=== PATIENT | female | born 1950 | race Caucasian/White ===

== ENCOUNTER 2018-07-16 21:51 | Emergency (ER) | payer MEDICARE, OTHER ==
[2018-07-16] MEDS ORDERED: Acetaminophen/HYDROcodone 325-5 MG Tab PO ONE ×2 (21:52→23:50)
[2018-07-16] MEDS ORDERED: Ondansetron 4 MG/2 ML SDV IVPUSH ONE (22:10)
[2018-07-16] MEDS ORDERED: Ketorolac 30 MG/ML SDV IVPUSH ONE (22:10)
[2018-07-16] MEDS ORDERED: Sodium Chloride 0.9% 1,000 ML IV ONE (22:10)
--- NOTE | 2018-07-16 22:30 | EDM.PDOC ---
ED HPI GENERAL MEDICAL PROBLEM - General Chief Complaint: Abdominal Pain Stated Complaint: VOMITTING Time Seen by Provider: 07/16/18 21:52 Source of Information: Reports: Patient, Family History Limitations: Reports: No Limitations - History of Present Illness INITIAL COMMENTS - FREE TEXT/NARRATIVE: 68 years old w was seen in the clinic today and was diagnosed with a bladder infection. Pt took one dose of Bactrim and felled suddenly pain at her R flank, thinking she is allergic to that Abx. On arrival to the ed, pt had excruciating pain at her r flank going down to her right groin. No H/O kidney stones. Pt is extremely nauseated as well. No trauma. The UA taken this am showed hematuria only, rn surgery WBC no LE no Nitrated. Pt has is S/P Hysterectomy. [employer] C/P no Dizziness or diarrhea or any other acute medical issue. BP 177/106 RR 20 Pulse ox 97% on RA Temp 36.8 Pulse 103 Onset Date: 07/15/18 Onset Time: 07:00 Duration: Hour(s):, Getting Worse, Intermittent Location: Reports: Pelvis Quality: Reports: Ache, Burning, Dull, Pressure, Throbbing Severity: Severe Improves with: Reports: None Worsens with: Reports: None Context: Reports: Other R lower abdomen radiating into R lower back & hip Pain Score (Numeric/FACES): 10 - Related Data Allergies Allergy/AdvReac Type Severity Reaction Status Date / Time aspirin [From Percodan] Allergy Nausea Verified 07/16/18 22:02 oxycodone [From Percodan] Allergy Nausea Verified 07/16/18 22:02 Home Meds: Home Meds Tamsulosin HCl [Flomax] 0.4 mg PO DAILY #5 capsule 07/17/18 [Rx] ED ROS GENERAL - Review of Systems Review Of Systems: See Below Constitutional: Reports: No Symptoms HEENT: Reports: No Symptoms Respiratory: Reports: No Symptoms Cardiovascular: Reports: No Symptoms Endocrine: Reports: No Symptoms GI/Abdominal: Reports: Abdominal Pain : Reports: Flank Pain, Hematuria Musculoskeletal: Reports: No Symptoms Skin: Reports: No Symptoms Neurological: Reports: No Symptoms Psychiatric: Reports: No Symptoms Hematologic/Lymphatic: Reports: No Symptoms Immunologic: Reports: No Symptoms ED EXAM, GI/ABD - Physical Exam Exam: See Below Exam Limited By: No Limitations General Appearance: Alert, WD/WN, Moderate Distress Eyes: Bilateral: Normal Appearance Ears: Normal External Exam Nose: Normal Inspection, Normal Mucosa, No Blood Throat/Mouth: Normal Inspection, Normal Lips, Normal Voice, No Airway Compromise Head: Atraumatic, Normocephalic Neck: Normal Inspection, Supple, Non-Tender, Full Range of Motion Respiratory/Chest: No Respiratory Distress, Lungs Clear, Normal Breath Sounds, No Accessory Muscle Use, Chest Non-Tender Cardiovascular: Normal Peripheral Pulses, Regular Rate, Rhythm, No Edema, No Gallop, No JVD, No Murmur, No Rub GI/Abdominal Exam: Normal Bowel Sounds, Soft, Non-Tender, No Organomegaly, No Distention, No Abnormal Bruit, No Mass, Pelvis Stable (Female) Exam: Deferred Rectal (Female) Exam: Deferred Back Exam: Normal Inspection, Full Range of Motion, CVA Tenderness (R) Extremities: Normal Inspection, Normal Range of Motion, Non-Tender, No Pedal Edema, Normal Capillary Refill Neurological: Alert, Oriented, CN II-XII Intact, Normal Cognition, Normal Gait, No Motor/Sensory Deficits Psychiatric: Normal Affect, Normal Mood Skin Exam: Warm, Dry, Intact, Normal Color, No Rash Lymphatic: No Adenopathy Course - Vital Signs Text/Narrative:: 68 years old w was seen in the clinic today and was diagnosed with a bladder infection. Pt took one dose of Bactrim and felled suddenly pain at her R flank, thinking she is allergic to that Abx. On arrival to the ed, pt had excruciating pain at her r flank going down to her right groin. No H/O kidney stones. Pt is extremely nauseated as well. No trauma. The UA taken this am showed hematuria only, rn surgery WBC no LE no Nitrated. Pt has is S/P Hysterectomy. [employer] C/P no Dizziness or diarrhea or any other acute medical issue. BP 177/106 RR 20 Pulse ox 97% on RA Temp 36.8 Pulse 103 PE: WNWD w f with acute onset of right flank pain Imaging; Urolithiasis 6 mm right mid ureter with hydronephrosis and perinephritic stranding Labs: CBC n;l BMP: Cr 1.2 GFR 44 UA doen at [place]: Hematuria Impression: Kidney stone Tx: Tradol Dilaudid, Zofran, Reexam: Improved 11.[address] Hampton, Urologist , [facility]: F/U in clinc [place]: Pt was painfree on D/C Plan: D/C with instructions Last Recorded V/S: Last Vital Signs Temp 36.8 C 07/16/18 21:52 Pulse 83 07/17/18 00:04 Resp 18 07/17/18 00:04 BP 124/82 07/17/18 00:04 Pulse Ox 96 07/17/18 00:04 - Orders/Labs/Meds Orders: Active Orders 24 hr Category Date Time Status Abdomen wo Cont [CT] Stat Exams 07/16/18 23:24 Taken UA W/MICROSCOPIC [URIN] Routine Lab 07/16/18 22:07 Ordered Labs: Laboratory Tests 07/16/18 07/16/18 Range/Units 22:22 22:22 WBC 10.0 (4.5-12.0) X10-3/uL RBC 4.48 (3.23-5.20) x10(6)uL Hgb 14.5 (11.5-15.5) g/dL Hct 42.3 (30.0-51.3) % MCV 94.5 (80-96) fL MCH 32.5 (27.7-33.6) pg MCHC 34.4 (32.2-35.4) g/dL RDW 11.7 (11.5-15.5) % Plt Count 246 (125-369) X10(3)uL MPV 8.5 (7.4-10.4) fL Neut % (Auto) 63.2 (46-82) % Lymph % (Auto) 26.2 (13-37) % [place] % (Auto) 7.3 (4-12) % Eos % (Auto) 2 (1.0-5.0) % Baso % (Auto) 1 (0-2) % Neut # (Auto) 6.3 (1.6-8.3) # Lymph # (Auto) 2.6 (0.6-5.0) # [place] # (Auto) 0.7 (0.0-1.3) # Eos # (Auto) 0.2 (0.0-0.8) # Baso # (Auto) 0.1 (0.0-0.2) # Sodium 140 (135-145) mmol/L Potassium 4.0 (3.5-5.3) mmol/L Chloride 103 (100-110) mmol/L Carbon Dioxide 26 (21-32) mmol/L BUN 19 H (7-18) mg/dL Creatinine 1.2 H (0.55-1.02) mg/dL Est Cr Clr Drug Dosing 47.17 mL/min Estimated GFR (MDRD) 44 L (>60) BUN/Creatinine Ratio 15.8 (9-20) Glucose 155 H (80-116) mg/dL Calcium 9.7 (8.6-10.2) mg/dL Total Bilirubin 0.6 (0.1-1.3) mg/dL AST 45 H (5-25) IU/L ALT 75 H (12-36) U/L Alkaline Phosphatase 143 H (56-112) IU/L Total Protein 8.0 (6.0-8.0) g/dL Albumin 4.2 (3.2-4.6) g/dL Globulin 3.8 g/dL Albumin/Globulin Ratio 1.1 Meds: Medications Discontinued Medications Generic Name Dose Route Start Last Admin Trade Name Freq PRN Reason Stop Dose Admin Hydrocodone Bitart/Acetaminophen 1 tab 07/16/18 23:50 07/16/18 23:57 [place] 325-5 Mg PO 07/16/18 23:51 1 tab ONETIME ONE Administration Hydromorphone HCl 0.5 mg 07/16/18 23:22 07/16/18 23:30 Dilaudid IVPUSH 07/16/18 23:23 0.5 mg ONETIME ONE Administration Sodium Chloride 1,000 mls @ 999 mls/hr 07/16/18 22:10 07/16/18 22:20 Normal [place] IV 07/16/18 23:10 999 mls/hr .BOLUS ONE Administration Ketorolac Tromethamine 15 mg 07/16/18 22:10 07/16/18 22:20 Toradol IVPUSH 07/16/18 22:11 15 mg ONETIME ONE Administration Ondansetron HCl 8 mg 07/16/18 22:10 07/16/18 22:21 Zofran IVPUSH 07/16/18 22:11 8 mg ONETIME ONE Administration Tamsulosin HCl 0.4 mg 07/16/18 23:18 07/16/18 23:30 Flomax PO 07/16/18 23:19 0.4 mg ONETIME ONE Administration Departure - Departure Time of Disposition: 00:04 Disposition: Home, Self-Care 01 Condition: Good Clinical Impression: Urolithiasis, Hematuria - Discharge Information Prescriptions: Tamsulosin HCl [Flomax] 0.4 mg PO DAILY #5 capsule Instructions: Acetaminophen; Hydrocodone tablets or capsules, Ketorolac injection, Ondansetron injection, Hydromorphone injection, Kidney Stones, Easy- to-Read, Tamsulosin capsules Referrals: Augustine Cifuentes MD [Primary Care Provider] - Forms: ED Department Discharge Additional Instructions: Please take Flomax 0.4mg daily, Motrin 600mg every 6-8 hours as needed for moderate pain and Hydrocodone 5/325 1 tablet every 4 hours as needed for severe pain as recommended Please call the Urology clinic in am for an appointmemt with Dr. Hampton, Urologist Please come back if your symptoms get worse acutely. Increase fluids. Strain urine, if collect stone, bring into clinic for analysis. - My Orders Last 24 Hours: My Active Orders 07/16/18 22:07 UA W/MICROSCOPIC [URIN] Routine 07/16/18 23:24 Abdomen wo Cont [CT] Stat - Assessment/Plan Last 24 Hours: My Active Orders 07/16/18 22:07 UA W/MICROSCOPIC [URIN] Routine 07/16/18 23:24 Abdomen wo Cont [CT] Stat
[2018-07-16] MEDS ORDERED: Tamsulosin 0.4 MG Cap.ER PO ONE (23:18)
[2018-07-16] MEDS ORDERED: HYDROmorphone 2 MG/ML SDV IVPUSH ONE (23:22)
== END 2018-07-17 00:25 | disposition home or self-care (01) ==
LOC: FB.ED 21:51
DX: N13.2 Hydronephrosis with renal and ureteral calculous obstruction (principal); R31.9 Hematuria, unspecified; Z88.8 Allergy status to other drugs, medicaments and biological substances
CPT/HCPCS: 36415; 74150; 80053; 85025; 96361; 96374; 96375; 99284; A9270; J1170; J1885; J2405; J7030

== ENCOUNTER 2018-07-22 03:05 | Emergency (ER) | payer MEDICARE, OTHER ==
[2018-07-22] MEDS ORDERED: HYDROmorphone 2 MG/ML SDV IM ONE (03:27)
[2018-07-22] MEDS ORDERED: hydrOXYzine HCl 50 MG/ML SDV IM ONE (03:27)
--- NOTE | 2018-07-24 01:51 | ER ---
DATE SEEN: 07/22/2018 CHIEF COMPLAINT: Right flank pain. HISTORY OF PRESENT ILLNESS: A 68-year-old female with right flank pain for the last day or so. She had an ureteric stent from a kidney stone on Friday and has been taking hydrocodone with minimal improvement. Pain is burning, radiates to the pelvic area, associated with hematuria. REVIEW OF SYSTEMS: Constipation. Denies nausea, vomiting. ALLERGIES: Oxycodone. SOCIAL HISTORY: Nonsmoker. PHYSICAL EXAMINATION: VITAL SIGNS: Normal vital signs. GENERAL: Appears uncomfortable. ABDOMEN: Soft, nontender, except on the right flank and costovertebral angle area. LABORATORY DATA: None. IMPRESSION: 1. Renal colic. 2. Urinary tract infection. 3. Constipation. TREATMENT: Dilaudid and Vistaril IM. I advised her to see Dr. Cifuentes tomorrow. Return to the ED with any worsening symptoms. /[id number] SHAUN/TEOFILO
== END 2018-07-22 03:55 | disposition home or self-care (01) ==
LOC: FB.ED 03:05
DX: N23 Unspecified renal colic (principal); N39.0 Urinary tract infection, site not specified; K59.00 Constipation, unspecified
CPT/HCPCS: 96372; 99283; J1170; J3410